=== PATIENT | female | born 1940 | race Caucasian/White ===

== ENCOUNTER 2023-09-21 10:48 | Day surgery (SDC) | payer OTHER, SELFPAY ==
[2023-09-21 11:21] VITALS: BP 130/64
[2023-09-21 11:40] VITALS: BMI 27.3
--- NOTE | 2023-09-21 11:59 | W.ICD.CONTRA ---
Post ICD/INSTRUCTOR OF SOCIOLOGY-D
-
History of HI?: No
LV Function
Left ventricular function study result?: Ejection Fraction </= 35%
ACEI/ARB/ARNI
Patient already on ACEI/ARB/ARNI: No
ACEI/ARB/ARNI Contraindication: Worsening Renal Function
Beta-Jacky
Patient already on Beta Jacky: Yes
[2023-09-21 12:12] LABS: Blood Urea Nitrogen 24 mg/dl (7-17); Calcium 9.9 mg/dl (8.4-10.2); Carbon Dioxide 25 mmol/L (22-30); Chloride 108 mmol/L (98-107); Estimated Creatinine Clearance 56 ml/min; Glucose 90 mg/dl (70-99); Potassium 4.8 mmol/L (3.5-5.1); Sodium 140 mmol/L (135-145); eGFR > 60.00
[2023-09-21 12:17] LABS: Hematocrit 34.5 % (37.0-47.0); Hemoglobin 11.3 g/dL (12.0-16.0); Mean Corp Hgb Conc. 32.8 g/dL (33.0-37.0); Mean Corpuscular Hgb 30.9 pg (27.0-31.0); Mean Corpuscular Volume 94.3 fL (81.0-99.0); Red Blood Cell Count 3.66 10^6/uL (4.20-5.40); Red Cell Dist. Width 14.7 % (11.5-14.5); White Blood Cell Count 5.2 10^3/uL (4.8-10.8)
[2023-09-21 12:44] LABS: Mean Platelet Volume 10.8 fL (7.4-10.4)
[2023-09-21 12:45] LABS: Platelet Count 87 10^3/uL (130-400)
--- NOTE | 2023-09-21 13:03 | ITS.CL.ICD ---
Business Services Coordinator - ICD
Implantable Cardioverter Defibrillator
Procedure Report:
ICD GENERATOR CHANGE REPORT
Date of Procedure: September 21, 2023
Primary customer service teller: Dr. Abdoul Barone
PROCEDURES:
1. Removal of ICD Generator, 2. ICD Implant
INDICATION FOR PROCEDURE:
1. ICD at [facility]
2. CARDIOMYOPATHY, heart failure with reduced ejection fraction
3. Previously placed primary prevention ICD
Life expectancy > 1 yr
'Time-out' was called and confirmed. The patient was prepped and draped in sterile fashion. Lidocaine with epi was used for local anesthesia. An incision was made along the previous incision and the device and leads were carefully dissected from
the pocket. Hemostasis was obtained with electrocautery. The leads were from the device header and tested using an external analyzer. The pocket was liberally irrigated with antibiotic solution. Once testing (see below) showed adequate
and stable function, the leads were connected to the generator header and the leads and generator were placed within the pocket. The pocket was closed in the typical fashion. Antibiotic pouch placed.
EXPLANTED ICD MEDTRONIC [id number], SN [id number] [id number]
IMPLANTED ICD: Medtronic [id number], [id number]
EXISTING LEADS:
RA: Medtronic [id number] (previously abandoned/capped)
RV: Medtronic [id number]
LV: Medtronic 4573
DEVICE TESTING:
Sensing: No escape
Capture: RV 1 V@ 0.4 ms, LV 075 V@ 0.4 ms,
Ohms: RV 437
FINAL PROGRAMMING:
Yasir Pacing: VVIR 60 - 130 ppm
Tachy parameters:
VF: 188 bpm, ATP while charging, Shock
CONCLUSIONS:
1. Explant of ICD at [facility]
2. Successful implant ICD generator.
3. Normal function of ICD and leads at implant testing.
RECOMMENDATIONS:
1. Observation and consideration for discharge home later today.
2. In-Office wound check in 7 - 10 days.
Copy to: Abdoul Barone M.D.
[2023-09-21 14:07] VITALS: BP 125/47
[2023-09-21 14:11] VITALS: BP 120/50
[2023-09-21 14:16] VITALS: BP 124/51
[2023-09-21 14:32] VITALS: BP 117/53
[2023-09-21 14:46] VITALS: BP 113/46
== END 2023-09-21 15:04 | disposition home or self-care (01) ==
LOC: CATH 10:48
PROVIDERS: ATTENDING PHYSICIAN Internal Medicine Cardiovascular Disease; FAMILY PHYSICIAN Internal Medicine
DX: Z45.02 Encounter for adjustment and management of automatic implantable cardiac defibrillator (principal); I42.9 Cardiomyopathy, unspecified; I50.22 Chronic systolic (congestive) heart failure; I25.2 Old myocardial infarction; I48.21 Permanent atrial fibrillation
CPT/HCPCS: 33264; 80048; 85027; 93005; C1882